=== PATIENT | male | born 2000 | race African-American/Black ===

== ENCOUNTER 2022-12-09 14:10 | Emergency (ER) | payer OTHER, SELFPAY ==
[2022-12-09 14:21] VITALS: BP 100/68; PULSE 83; RESP 16; TEMP 36.8; O2SAT 94; BMI 18.0
--- NOTE | 2022-12-09 14:48 | CRLHL7_ITS ---
For Patients: As a result of the Century Cures Act, medical imaging exams and procedure reports are released immediately into your electronic medical record. You may view this report before your referring provider. If you have questions, please contact your health care provider. Indication: Neck pain Technique: Volumetric multidetector CT images of the cervical spine were obtained without the administration of IV contrast. Comparison: None available. Findings: The cervical vertebral body heights are grossly maintained with minimal endplate Schmorl`s defect of the inferior C4 and superior C5 endplates. There is mild straightening of the normal cervical lordosis without significant spondylolisthesis. There is no displaced fracture or dislocation. The intervertebral discs are grossly preserved in height. The facets are well imbricated. The partial visualization of the clivus and sphenoid sinus demonstrate likely arrested pneumatization of the right sphenoid sinus. The paraspinous soft tissues are otherwise within normal limits. Impression: Mild spasmodic straightening of the normal cervical lordosis without evidence of significant spondylolisthesis or displaced fracture. Please note that all CT scans at this facility use dose modulation, iterative reconstruction, and/or weight-based dosing when appropriate to reduce radiation dose to as low as reasonably achievable. Dictated by Tomy Barajas MD @ 12/09/2022 3:18:57 PM (Electronically Signed)
--- NOTE | 2022-12-09 14:49 | ED_ITS ---
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 Patient states that last Wednesday he developed some midline upper neck pain without any associated injury, he thought maybe he slept different, at that time he even removed his pillow. Symptoms have progressively got worse, he did have some body aches over the weekend which were upper, thought he felt fevers, denies any headache, nausea vomiting, chest pain or shortness of breath. Pain is localized to his cervical spine he does not feel it is the musculature, last night he did even sleep because the pain, just prior to this he was walking down this stairs and felt popping sensation. Denies any weakness of the upper extremities, pain does not radiate down his arms. No history of any radiculopathy in the past. No sick contacts. He has been taking Tylenol with minimal relief. Related Data Home Medications Medication Instructions Recorded Confirmed cyclosporine 0.05 % eye drops 1 drp ophthalmic (eye) BID 12/09/22 12/09/22 (Restasis MultiDose) Previous Rx's Medication Instructions Recorded benzonatate 100 mg capsule 100 mg PO TID PRN cough #15 caps 12/09/22 diazepam 5 mg tablet (Valium) 5 mg PO Q8H PRN #10 tabs 12/09/22 naproxen 500 mg tablet 500 mg PO BID 5 days #10 tabs 12/09/22 Allergies Allergy/AdvReac Type Severity Reaction Status Date / Time No Known Drug Allergies Allergy Verified 12/09/22 14:26 Review of Systems Status of ROS: Reports: 10 or more systems reviewed and unremarkable except as noted in History and below [facility] Medical History Influenza ?J11.1 - Influenza due to unidentified influenza virus with other respiratory manifestations (ICD-10) URI (upper respiratory infection) ?J06.9 - Acute upper respiratory infection, unspecified (ICD-10) Wheeze ?R06.2 - Wheezing (ICD-10) Social History Smoking Status: Never smoker Do you use any of these nicotine containing products: None How often do you have a drink containing alcohol: never How often do you have six or more drinks on one occasion: Never AUDIT-C Alcohol total score: 0 Non-prescribed substance use: denies use service: No Exam Narrative: Exam Narrative: General: No obvious distress sitting comfortably nontoxic in appearance HEENT: Tympanic membranes within normal limits bilaterally oropharynx clear and moist, pupils equal round reactive to light, extraocular muscles intact Neck: Supple, he has midline tenderness in the upper cervical region no step- offs or saddle anesthesia, minimal tenderness to the paraspinal musculature, normal 45 degree rotation, minimal pain with flexion, increased pain with extension. No meningeal signs. Lungs: Clear to auscultation bilaterally : Heart normal sinus rhythm S1-S2 Abdomen: Soft nontender Muscle skeletal: +5 strength upper extremities, radial, median anterior osseous and ulnar no motor deficit. Neuro: Alert awake and oriented x3, GCS 15, no focal deficits Const: Vital Signs, click to edit/add: Vital Signs - 24 hr 12/09/22 14:21 Temperature 98.3 F Pulse Rate [Pulse Oximeter] 83 Respiratory Rate 16 Blood Pressure [Ri ght Upper Arm] 100/68 Pulse Oximetry 94 Oxygen Delivery Me thod Room Air Course Course Hospital Course: Workup will include CT cervical spine without contrast patient has no symptoms of meningitis, will obtain a COVID/influenza/RSV, Lidoderm patch applied and IM Toradol 30 mg. Differential diagnosis include but not limited to arthritis, fracture, spinal stenosis, sprain and strain. This includes life-threatening complications of fractures. Reevaluation(s) Reevaluation #1: Patient was updated on his imaging results mild spasmodic straightening of the cervical lordosis without evidence of any significant cervical spondylolisthesis or fracture. Patient is feeling better after above care given, conservative management to be continued, given prescription for Naproxen 500 mg twice daily over the next 5 days, short course Valium 5 mg to be taken every 4-6 hours as needed for muscle spasm, patient is to follow-up with primary care provider over the next 7-10 days. Time: 16:18 Vital Signs Vital signs: Initial Vital Signs Temperature 98.3 F 12/09/22 14:21 Temperature Source Temporal Artery Scan 12/09/22 14:21 Pulse Rate 83 12/09/22 14:21 Pulse Rhythm Regular 12/09/22 14:21 Pulse Strength 3+ Normal 12/09/22 14:21 Respiratory Rate 16 12/09/22 14:21 Blood Pressure 100/68 12/09/22 14:21 Blood Pressure Mean 78 12/09/22 14:21 Blood Pressure Position Sitting 12/09/22 14:21 Pulse Oximetry 94 12/09/22 14:21 Oxygen Delivery Method Room Air 12/09/22 14:21 Vital Signs Temperature 98.3 F 12/09/22 14:21 Pulse Rate 83 12/09/22 14:21 Respiratory Rate 16 12/09/22 14:21 Blood Pressure 100/68 12/09/22 14:21 Pulse Oximetry 94 12/09/22 14:21 Oxygen Delivery Method Room Air 12/09/22 14:21 Temperature 98.3 F 12/09/22 14:21 Pulse Rate 83 12/09/22 14:21 Respiratory Rate 16 12/09/22 14:21 Blood Pressure 100/68 12/09/22 14:21 Pulse Oximetry 94 12/09/22 14:21 Oxygen Delivery Method Room Air 12/09/22 14:21 Medical Decision Making Lab Data Labs: Lab Results 12/09/22 Range/Units 14:36 SARS-CoV-2 (PCR) Negative SARS-CoV-2 (Negative) Influenza Type A (PCR) Negative PCR FLU A (Negative) Influenza Type B (PCR) Negative PCR FLU B (Negative) RSV (PCR) Negative PCR RSV (Negative) Discharge Plan Discharge Clinical Impression: Acute neck pain, Viral illness Patient Disposition: Home, Self-Care Condition: Improved Instructions: Neck Pain (ED) Additional Instructions: To take naproxen 500 mg twice daily over the next 5 days, Valium 5 mg tablets every 6 hours as needed for muscle spasms, Tessalon Perles 100 mg 3 times daily over the next 5 days for cough, to follow-up with primary care provider over the next 7-10 days. Activity Level: Activity as Tolerated Prescriptions: New naproxen 500 mg tablet 500 mg PO BID 5 Days Qty: 10 2RF diazepam [Valium] 5 mg tablet 5 mg PO Q8H PRNQty: 10 0RF benzonatate 100 mg capsule 100 mg PO TID PRN (Reason: cough) Qty: 15 0RF No Action Restasis MultiDose 0.05 % drops 1 drp ophthalmic (eye) BID Follow Up/Referrals: Provider,Not a Local [Primary Care Provider] - Stand Alone Forms: Image[employer] Info Instructions
[2022-12-09] MEDS: KETOROLAC 30 MG/ML inj IM (15:28)
[2022-12-09 15:29] LABS: PCR FLU A Negative PCR FLU A (Negative); PCR FLU B Negative PCR FLU B (Negative); PCR RSV Negative PCR RSV (Negative)
[2022-12-09] MEDS: LIDOCAINE 5% PATCH 1 PATCH TRANSDERMA (15:34)
[2022-12-09 15:36] LABS: SARS PCR* Negative SARS-CoV-2 (Negative)
== END 2022-12-09 16:34 | disposition home or self-care (01) ==
PROVIDERS: Emergency Provider Student in an Organized Health Care Education/Training Program
DX: M54.2 Cervicalgia (principal); B34.9 Viral infection, unspecified
CPT/HCPCS: 72125; 87631; 96372; 99284; A9270; J1885